=== PATIENT | female | born 1995 | race Caucasian/White ===

== ENCOUNTER 2022-01-10 08:05 | Emergency (ER) | payer MEDICAID, OTHER ==
[~2022-01-10] VITALS: Ht 157.5 cm; Wt 54.5 kg
[~2022-01-10 08:05] MED LIST: CEPH-357 PO
[2022-01-10 08:42] VITALS: BP 119/78
--- NOTE | 2022-01-10 09:20 | NUR ---
no in lobby call #1
--- NOTE | 2022-01-10 10:22 | NUR ---
not in lobby call #2
--- NOTE | 2022-01-10 10:43 | NUR ---
not in lobby call #3
== END 2022-01-10 11:11 | disposition left against medical advice (07) ==
LOC: ER 08:05
DX: J02.9 Acute pharyngitis, unspecified (principal); Z53.21 Procedure and treatment not carried out due to patient leaving prior to being seen by health care provider